=== PATIENT | female | born 1975 | race Caucasian/White ===

== ENCOUNTER → 2022-11-06 | Outpatient (CLI) | payer BC ==
--- NOTE | 2022-11-06 08:38 | Diagnostic Imaging Report ---
PROCEDURE: US Gallbladder. TECHNIQUE: Multiple real-time grayscale images were obtained over the right upper quadrant in various projections. INDICATION: Right upper quadrant pain. Liver is normal in size at approximately 17 cm. Portal vein is patent and shows normal direction of flow. No liver mass is identified. The gallbladder is without stones or sludge. There is no wall thickening or biliary ductal dilatation. Pancreas is unremarkable. Aorta is nonaneurysmal. IVC is patent. Right kidney is without calculi or hydronephrosis. There is no ascites. IMPRESSION: Unremarkable gallbladder ultrasound. Dictated by: Dictated on workstation # [id number]
== END ==
LOC: RAD 07:15
PROVIDERS: ATTEND Nurse Practitioner Family
DX: R10.11 Right upper quadrant pain (principal)
CPT/HCPCS: 76705

== ENCOUNTER → 2022-11-19 | Outpatient (CLI) | payer BC ==
[~2022-11-19] MED LIST: CATHETER FLUSH 10 ML SYR IVP PRN
--- NOTE | 2022-11-19 13:12 | Diagnostic Imaging Report ---
Right upper quadrant pain examination HIDA scan 11/19/2022 FINDINGS: After uneventful administration of 5.35 mCi of technetium 99m Choletec intravenously subsequent imaging was performed with prompt imaging is uptake seen throughout the liver. Gallbladder and small bowel seen within 60 minutes. Subsequently administration of ensure administered orally with continued imaging performed. Ejection fraction calculated at 94.6%. IMPRESSION: 1. No obstructive process. 2. Normal ejection fraction. Dictated by: Dictated on workstation # [id number]
== END ==
LOC: CARD 10:00
PROVIDERS: ATTEND Internal Medicine
DX: R10.11 Right upper quadrant pain (principal)
CPT/HCPCS: 78227; A9537

== ENCOUNTER 2023-03-03 06:25 | Outpatient (CLI) | payer BC ==
[~2023-03-03] VITALS: Ht 172.7 cm; Wt 64.5 kg
[2023-03-03] MEDS ORDERED: GALC120S SQ (09:31)
[2023-03-03] MEDS ORDERED: ESZO1TAB10 PO (09:31)
[2023-03-03] MEDS ORDERED: PLEC3TAB2 PO (09:31)
[2023-03-03] MEDS ORDERED: CITA20TA9 PO (09:31)
[2023-03-03] MEDS ORDERED: ESTR1PAT76 TD (09:31)
== END 2023-03-03 09:36 ==
LOC: PREOP 06:25
PROVIDERS: ATTEND Internal Medicine
DX: Z01.818 Encounter for other preprocedural examination (principal)

== ENCOUNTER 2023-03-05 08:32 | Day surgery (SDC) | payer BC ==
[~2023-03-05] VITALS: Ht 173 cm; Wt 64.5 kg
[~2023-03-05 08:32] MED LIST changes: -CATHETER FLUSH 10 ML SYR IVP PRN; +CITA20TA9 PO; +ESTR1PAT76 TD; +ESZO1TAB10 PO; +GALC120S SQ; +PLEC3TAB2 PO
[2023-03-05] MEDS ORDERED: LACTATED RINGERS 1,000 ML IV STA (08:33)
[2023-03-05 08:45] VITALS: BP 99/77
[2023-03-05] MEDS ORDERED: HURRICAINE EXT TUBE (BENZOCAINE) XX PRN (08:45)
[2023-03-05] MEDS ORDERED: MIDAZOLAM 2 MG/2 ML (VERSED) VIAL ONE (09:25)
[2023-03-05] MEDS ORDERED: PROPOFOL INJECTION 50 ML IV ONE (09:25)
--- NOTE | 2023-03-05 10:14 | Pre-Op Note & Conscious Sedat ---
Pre-Operative Progress Note Date H&P Reviewed: Mar 05, 2023 Time H&P Reviewed: 09:00 Pre-Op Diagnosis: epigastric pain nausea screening colon Moderate Sedation PreProcedure ASA Score 2 Airway Lungs Heart ASA score ASA 1: a normal healthy patient ASA 2: a patient with a mild systemic disease (mid diabetes, controlled hypertension, obesity ASA 3: a patient with a severe systemic disease that limits activity (angina, COPD, prior Myocardial infarction) ASA 4: a patient with an incapacitating disease that is a constant threat to life (CHF, renal failure) ASA 5: a moribund patient not expected to survive 24 hrs. (ruptured aneurysm) ASA 6: a declared brain- patient whose organs are being harvested. For emergent operations, add the letter E after the classification Mallampati Classification Grade 2 Sedation Plan Analgesia, Amnesia, Plan communicated to team members, Discussed options with patient/fam, Discussed risks with patient/fam The patient is an appropriate candidate to undergo the planned procedure, sedation, and anesthesia. The patient immediately re-assessed prior to indication. TERRANCE GRANADOS MD Mar 05, 2023 10:14
[2023-03-05 10:15] VITALS: BP 99/67
[2023-03-05 10:20] VITALS: BP 99/68
--- NOTE | 2023-03-05 10:22 | Progress Note-Post Operative ---
Post-Procedure Note Physician (s)/Safety Investigator (s) Physician TERRANCE GRANADOS MD Pre-Procedure Diagnosis Pre-Procedure Diagnosis: epigastric pain nausea screening colon Post-Procedure Diagnosis Post-operative diagnosis: The patient was placed in the left lateral decubitus position. The endoscope was inserted into the oral cavity and under direct visitation the esophagus was then abated. This was passed down the esophagus stomach and second portion of the duodenum. Careful inspection was made as the endoscope was withdrawn. Findings: The posterior pharynx epiglottis arytenoid aperture and true and false vocal folds were unremarkable to gross inspection. Proximal mid and distal esophagus were unremarkable the Z-line was distinct with no evidence to suggest esophagitis or Huber's change. There was no evidence for hiatal hernia. The cardia and fundus were unremarkable. There is 1 area of erythema noted in the antrum that was biopsied and submitted for histopathology no evidence for peptic ulcer disease was noted. The duodenal bulb and second portion of the of the duodenum were unremarkable. A/P 1. There was 1 roughly 12 x 15 mm area of erythema in the antrum which was biopsied and submitted for histopathology. This is an otherwise unremarkable EGD. We then proceeded with colonoscopy. Prior to undergoing colonoscopy digital rectal evaluation was performed. Anal center tone was normal and the perianal reflexes intact. No abnormalities noted on digital inspection anal canal or distal rectal vault. The colonoscope was then inserted into the rectum and under direct visualization advanced to the cecum. The cecum was identified by identification of the cecal valve and cecal strap. Photographic dictation was obtained. Quality the prep was suboptimal the cecum was not completely visualized due to solid stool and there was a thin film of liquid stool that diffusely over the ascending colon and cecum no other areas of significant solid stool were noted but there are areas of liquid stool in the sigmoid colon as well. Findings: No evidence for internal or external hemorrhoids and the rectum was unremarkable as well as the sigmoid colon descending colon splenic flexure transverse colon hepatic flexure ascending colon and cecum under suboptimal prep conditions however see above. Considering this Would advocate repeat screening colonoscopy in 5 years. TERRANCE Daigle MD, MD Mar 05, 2023 10:22
[2023-03-05 10:25] VITALS: BP 102/70
[2023-03-05 11:10] VITALS: BP 102/70
--- NOTE | 2023-03-15 14:59 | HISTORY AND PHYSICAL ---
DATE OF SERVICE: 03/05/2023 VERSIONED: 03/15/2023 dla TO CORRECT FIN PANENDOSCOPY HISTORY AND PHYSICAL HISTORY OF PRESENT ILLNESS: The patient is a 47-year-old white female referred by Dr. Keyona Mejía for screening colonoscopy as well as diagnostic EGD. The patient has a history of constipation predominant IBS, but over the past 6 months, she has been having increased episodes of epigastric discomfort with pressure, followed by nausea and vomiting. It happens once or twice a week on average. It tends to follow eating by 15-30 minutes and she feels unwell for upwards of an hour. It does not wake her up at night. She underwent unremarkable abdominal sonography as well as unremarkable HIDA scan, latter being done in November with an estimated ejection fraction of the gallbladder of 94.6%. No other abnormalities were noted and laboratory evaluation, most recently in February was unremarkable, save for mild eosinophilia with normal white count of 6.22, hemoglobin of 12.7 with normal MCV of 87, normal platelet count of 305,000, slightly low neutrophil count of 28.7% for an ANC level of a little over 1600. The patient denies dysphagia, melena or bright red blood per rectum. PHYSICAL EXAMINATION: GENERAL: Reveals a slightly pale, ill-appearing white female in no acute distress. VITAL SIGNS: Weight is 142.4 pounds, that is down 4.6 pounds from 4 months ago. Blood pressure 130/80. CHEST: Clear. CARDIOVASCULAR: Reveals a regular rate and rhythm without murmur, S3 or S4. HEENT: Slight pallor unremarkable. Sclerae are nonicteric. ABDOMEN: Soft, supple without mass, organomegaly, or tenderness. ASSESSMENT AND PLAN: The patient is being set up for screening colonoscopy, her first seemed to be of average risk. She has not aware of any family history for colon cancer or GI tract malignancy. Prep instructions were given. Questions were answered. She will also be undergoing EGD for evaluation of epigastric pain with intermittent nausea and vomiting, and unremarkable abdominal stone on HIDA scan. Prep instructions were given and questions were answered. Job ID: [id number] DocumentID: [id number] Dictated Date: 03/01/2023 16:55:31 Geology Professor Date: 03/01/2023 18:05:00 Dictated By: TERRANCE GRANADOS MD
== END 2023-03-05 11:19 | disposition home or self-care (01) ==
LOC: ENDO 08:32
PROVIDERS: ATTEND Internal Medicine
DX: Z12.11 Encounter for screening for malignant neoplasm of colon (principal); K29.50 Unspecified chronic gastritis without bleeding; K31.89 Other diseases of stomach and duodenum
CPT/HCPCS: 88305; 88342